=== PATIENT | male | born 1995 | race Caucasian/White ===

== ENCOUNTER → 2019-04-13 | Outpatient (CLI) | payer OTHER | LOC: LAB.O 19:31 | PROVIDERS: ATTEND Nurse Practitioner Family | DX: R50.9 Fever, unspecified (principal) ==

== ENCOUNTER → 2019-05-07 | Outpatient (CLI) | payer OTHER ==
--- NOTE | 2019-05-07 10:05 | US ---
EXAM DESCRIPTION: Abdomen,Complete: Ultrasound. 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 TECHNIQUE: Transabdominal scannin-dimensional and Doppler modes. FINDINGS: Gallbladder: Normal size with no intraluminal stones or sludge. Wall thickness 2.6 mm. No fluid. Nontender with transducer pressure. Common bile duct: 3.8 mm caliber normal. Liver: Diffuse increased echogenicity. Long axis of the right lobe 17.4 cm. Normal direction of flow and caliber of the portal vein. Normal caliber intrahepatic biliary ducts. Smooth capsule with no ascites. No focal lesions. Pancreas: Included segments with normal echogenicity; duct not seen.. Abdominal aorta: Normal caliber from the proximal segment to the distal bifurcation. IVC: visualized; normal caliber. Spleen normal echogenicity; long axis measurement is 13.8 cm. Right kidney: 9.9 cm long axis. No hydronephrosis, no perinephric fluid, no echogenic stones. Normal cortical thickness and echogenicity. Left kidney: 10.5 cm long axis. Normal cortical thickness and echogenicity. No hydronephrosis, no echogenic stones, and no perirenal fluid. IMPRESSION: Steatosis of the liver but no enlargement. No focal lesions. Normal blood flow and intrahepatic ducts. Smooth capsule with no ascites. Normal gallbladder and common bile duct caliber. Pancreas, right kidney and left kidney unremarkable. Spleen upper normal limits size with normal echogenicity. Normal caliber of the IVC and abdominal aorta. Electronically signed by: Bobby Carlin MD 05/07/2019 10:03 AM CDT
== END ==
LOC: US 08:16
PROVIDERS: ATTEND Nurse Practitioner Family
DX: B27.00 Gammaherpesviral mononucleosis without complication (principal); K76.0 Fatty (change of) liver, not elsewhere classified